=== PATIENT | male | born 1995 | race Caucasian/White ===

== ENCOUNTER 2021-10-25 11:58 | Emergency (ER) | payer SELFPAY ==
[~2021-10-25] VITALS: Ht 175.3 cm; Wt 80.0 kg
[2021-10-25 12:04] VITALS: BP 133/86
[2021-10-25] MEDS ORDERED: LORAZEPAM 0.5MG TABLET PO ONE (13:00)
== END 2021-10-25 15:07 | disposition left against medical advice (07) ==
LOC: ER 12:21
DX: T40.991A Poisoning by other psychodysleptics [hallucinogens], accidental (unintentional), initial encounter (principal); G92.8 Other toxic encephalopathy; F16.951 Hallucinogen use, unspecified with hallucinogen-induced psychotic disorder with hallucinations; R03.0 Elevated blood-pressure reading, without diagnosis of hypertension; Y92.89 Other specified places as the place of occurrence of the external cause
CPT/HCPCS: 99283

== ENCOUNTER 2024-08-16 11:44 | Emergency (ER) | payer SELFPAY ==
[~2024-08-16] VITALS: Ht 180.3 cm; Wt 101.0 kg
[2024-08-16 12:06] VITALS: O2SAT 100
[2024-08-16 12:28] VITALS: BP 112/71; PULSE 78; RESP 16; TEMP 36.39180; O2SAT 100
[2024-08-16 12:33] LABS: BASOPHILS % 0.3 % (0.0-2.0); EOSINOPHILS % 0.1 % (0.0-5.0); HEMATOCRIT. 46.7 % (42.0-52.0); HEMOGLOBIN. 15.5 g/dL (14.0-18.0); LYMPHOCYTES % 15.7 % (20.0-50.0); MEAN CORPUSCULAR HEMOGLOBIN 28.5 pg (28.0-32.0); MEAN CORPUSCULAR HGB CONC 33.1 g/dL (31.0-37.0); MEAN CORPUSCULAR VOLUME 86.1 fL (80.0-94.0); MEAN PLATELET VOLUME 7.1 fl (7.4-10.4); MONOCYTES % 6.6 % (2.0-8.0); NEUTROPHILS % 77.3 % (40.0-76.0); PLATELET 251 x1000/uL (130-400); RED BLOOD CELL COUNT 5.43 mill/uL (4.7-6.1); WHITE BLOOD COUNT 10.9 x1000/uL (4.5-11.0)
[2024-08-16 12:39] LABS: CHLORIDE 102 mEq/L (98-107); POTASSIUM 3.8 mEq/L (3.5-5.1); SODIUM 140 mEq/L (136-145)
[2024-08-16 12:40] LABS: CALCIUM 9.1 mg/dL (8.7-10.4); CARBON DIOXIDE 24 mEq/L (21-32)
[2024-08-16 12:45] LABS: CREATININE 0.8 mg/dL (0.6-1.3); GLUCOSE 62 mg/dL (70-105); UREA NITROGEN BLOOD 17 mg/dL (9-23)
== END 2024-08-16 12:32 | disposition home or self-care (01) ==
LOC: ER 11:51
DX: F14.10 Cocaine abuse, uncomplicated (principal); R00.2 Palpitations; R07.89 Other chest pain; I10 Essential (primary) hypertension
CPT/HCPCS: 36415; 80048; 85025; 93005; 99284